=== PATIENT | female | born 1980 | race Caucasian/White ===

== ENCOUNTER 2017-04-04 11:00 | Outpatient (RCR) | payer BC | END 2017-04-05 | LOC: M PT 11:00 | PROVIDERS: ATTEND Physician Assistant | DX: Z51.89 Encounter for other specified aftercare (principal); M75.42 Impingement syndrome of left shoulder ==

== ENCOUNTER 2017-04-18 08:45 | Outpatient (RCR) | payer BC | END 2017-05-05 | LOC: M PT 08:45 | PROVIDERS: ATTEND Physician Assistant | DX: Z51.89 Encounter for other specified aftercare (principal); M25.512 Pain in left shoulder ==

== ENCOUNTER → 2017-07-06 | Outpatient (RCR) | payer OTHER | END | disposition home or self-care (01) | LOC: M PT 06-12 07:42 | PROVIDERS: ATTEND Physician Assistant | DX: Z51.89 Encounter for other specified aftercare (principal); M70.60 Trochanteric bursitis, unspecified hip; M51.36 Other intervertebral disc degeneration, lumbar region ==

== ENCOUNTER 2017-08-03 09:04 | Outpatient (RCR) | payer OTHER | END 2017-08-05 | LOC: M PT 09:04 | PROVIDERS: ATTEND Physician Assistant | DX: Z51.89 Encounter for other specified aftercare (principal); M70.60 Trochanteric bursitis, unspecified hip; M43.10 Spondylolisthesis, site unspecified ==

== ENCOUNTER → 2020-11-16 | Outpatient (CLI) | payer BC, OTHER ==
--- NOTE | 2020-11-16 11:36 | REP ---
INDICATION: IMPINGEMENT SYNDROME OF RIGHT SHOULDER. COMPARISON: Radiographs 06/10/2006. TECHNIQUE: Coronal oblique T1, T2 fat sat, sagittal oblique T2 fat sat, axial T2 fat sat, gradient echo. FINDINGS: Rotator cuff: No evidence of tear. Mild supraspinatus tendinopathy/tendinitis. Acromioclavicular joint: There are moderate hypertrophic degenerative changes of the acromioclavicular joint with subchondral marrow edema on both sides of the joint. Acromion: Type 2 Biceps Tendon: In bicipital groove, with mild surrounding fluid.. Hill Sach's deformity: None. Deltoid muscle: No abnormal signal. Biceps labral complex: Intact. Labrum: No tear. Cartilage: No defects. There is mild chondromalacia at the glenohumeral joint. Bone marrow: There is minimal marrow edema and cystic change in the superolateral humeral head. Joint fluid: No effusion. IMPRESSION: Mild supraspinatus tendinopathy/tendinitis. No rotator cuff or labral tear identified. Moderate hypertrophic degenerative changes acromioclavicular joint with subchondral marrow edema. Mild chondromalacia glenohumeral joint. <Electronically signed by Antony Crooks > 11/16/20 [id number]
== END ==
LOC: M RAD 06:32
PROVIDERS: ATTEND Orthopaedic Surgery Sports Medicine
DX: M75.41 Impingement syndrome of right shoulder (principal); M75.21 Bicipital tendinitis, right shoulder

== ENCOUNTER 2020-12-01 07:37 | Outpatient (RCR) | payer BC | END 2020-12-06 | LOC: M PT 07:37 | PROVIDERS: ATTEND Orthopaedic Surgery Sports Medicine | DX: M75.41 Impingement syndrome of right shoulder (principal) ==

== ENCOUNTER 2020-12-29 08:23 | Outpatient (RCR) | payer BC ==
[2021-01-06] MEDS ORDERED: FLON1SPR (13:57)
[2021-01-06] MEDS ORDERED: CVS1CAP2 PO (13:57)
[2021-01-06] MEDS ORDERED: VITMTA PO (13:57)
[2021-01-06] MEDS ORDERED: ALLE12TA31 PO (13:57)
[2021-01-06] MEDS ORDERED: VITA250T4 PO (13:57)
[2021-01-06] MEDS ORDERED: IBUP200C28 PO (13:57)
== END 2021-01-03 ==
LOC: M PT 08:23
PROVIDERS: ATTEND Orthopaedic Surgery Sports Medicine
DX: M75.41 Impingement syndrome of right shoulder (principal)

== ENCOUNTER → 2021-01-12 | Outpatient (CLI) | payer BC ==
[~2021-01-12] MED LIST: ALLE12TA31 PO; CVS1CAP2 PO; FLON1SPR; IBUP200C28 PO; VITA250T4 PO; VITMTA PO
== END ==
LOC: M LABSMTC 08:00
PROVIDERS: ATTEND Internal Medicine Infectious Disease
DX: Z01.812 Encounter for preprocedural laboratory examination (principal)

== ENCOUNTER 2021-01-13 08:18 | Day surgery (SDC) | payer BC ==
[~2021-01-13] VITALS: Ht 165.1 cm; Wt 93.0 kg
[~2021-01-13 08:18] MED LIST changes: +LR 1,000 ML IV ONE; +MIDAZOLAM INJ 2MG/2ML VIAL (J2250 PER 1MG) IV PRN; +ceFAZolin SOD 2 GM in IV 1 EA IV ONE; +fentaNYL 100 MCG/2 ML INJECTION (J3010) IV PRN
[2021-01-13] MEDS ORDERED: MIDAZOLAM INJ 2MG/2ML VIAL (J2250 PER 1MG) As Ordered ONE (09:21)
[2021-01-13] MEDS ORDERED: LIDOCAINE 2% 100MG/5ML SDV (FOR ANES.) As Ordered ONE (09:22)
[2021-01-13] MEDS ORDERED: PHENYLephrine 500MCG 5ML (100MCG/ML) SYRINGE As Ordered ONE (09:22)
[2021-01-13] MEDS ORDERED: ePHEDrine SULFATE 25 MG/5 ML(5MG/ML) SYRINGE As Ordered ONE (09:22)
[2021-01-13] MEDS ORDERED: propofoL 200 MG/20 ML VIAL As Ordered ONE (09:22)
[2021-01-13] MEDS ORDERED: ROCURONIUM BROMIDE 50 MG/5 ML VIAL As Ordered ONE (09:22)
[2021-01-13] MEDS ORDERED: dexameTHASONE 4 MG/ML 1ML VIAL (J1100 PER 1MG) As Ordered ONE (09:22)
[2021-01-13] MEDS ORDERED: fentaNYL 100 MCG/2 ML INJECTION (J3010) As Ordered ONE ×2 (09:22→12:41)
[2021-01-13] MEDS ORDERED: SUGAMMADEX SODIUM 500 MG/5 ML VIAL (BRIDION) As Ordered ONE (09:22)
[2021-01-13] MEDS ORDERED: ONDANSETRON 4MG/2ML VIAL As Ordered ONE ×2 (09:22→13:38)
[2021-01-13] MEDS ORDERED: PHENYLEPHRINE 10MG/ML 1ML VIAL (J2370 PER 1) As Ordered ONE (09:43)
[2021-01-13] MEDS ORDERED: BUPIVACAINE HCL 0.5% 30 ML VIAL XX ONE (10:30)
[2021-01-13] MEDS ORDERED: dexameTHASONE 10MG/1ML VIAL PRES.FREE (J1100 PER 1MG) XX ONE (10:30)
[2021-01-13] MEDS ORDERED: EPINEPHrine INJ 1 MG/ML 1ML AMP XX ONE (10:30)
[2021-01-13] MEDS ORDERED: EPINEPHrine 1MG/ML INJ 30ML MD-VIAL As Ordered ONE (11:47)
[2021-01-13] MEDS ORDERED: ACETAMINOPHEN 1000MG 100ML IV BTL (OFIRMEV) (J0131 PER 10MG) As Ordered ONE (12:28)
[2021-01-13] MEDS ORDERED: LABETALOL 100MG/20ML VIAL As Ordered ONE (12:44)
[2021-01-13] MEDS ORDERED: ESMOLOL INJ 100MG/10ML VIAL As Ordered ONE (12:44)
--- NOTE | 2021-01-13 13:32 | ROOPDOC ---
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 PROCEDURE: Right shoulder arthroscopy subacromial decompression and distal clavicle excision. SURGEON: Teddy Salas MD [employer] SUPERVISOR: ANESTHESIA: Gen. anesthesia and preoperative block by Dr MCKEON. ESTIMATED BLOOD LOSS: Approximately 50 mL. COMPLICATIONS: None. REMARKS: She did have moderate deltoid swelling despite the case being very short in duration. PROCEDURE NOTE: This 40-year-old female failed conservative management with right shoulder impingement syndrome and symptoms as well as pain from her distal clavicle joint. She wished to go ahead with operative management. I re-explained the pros and cons and risks and benefits of surgery. I marked the right upper extremity and the patient had a preoperative block. We proceeded to surgery DESCRIPTION OF PROCEDURE: Patient was brought to the operating theater and administered a general anesthetic. There are placed supine on the operating room table. The patient was transferred . right lateral decubitus with the aid of the beanbag positioner. All bony prominences were padded. Pillows placed between the legs. Axillary roll was placed. 2 g of IV Ancef was administered prior to the start of the case. Limb was prepped and draped with the usual sterile prep solution chlorhexidine allowing over 3 minutes prep solution drying time prior to draping. The patient's limb was placed into a sterile abduction set up with 10 pounds of traction. Preoperative timeout was performed to confirm the site the patient and surgery. I began by making a standard posterior arthroscopy portal and inserting the arthroscope into the intra-articular portion of the right shoulder. I performed a thorough diagnostic arthroscopy. Anterior portal was created just distal to the acromioclavicular joint through the rotator interval. There is a moderate amount of synovitis at the rotator interval as well as posterior to the posterior labrum. This was gently debrided using electrocautery .Cartilage on the glenoid and humeral head was normal. Subscapularis tendon was normal as was the undersurface of the supraspinatus and infraspinatus tendons. Biceps tendon appeared normal and stable synovitis and no tears. Labrum appears normal although there was some slight fraying of the anterior labrum and this is gently debrided. Arthroscope was inserted into the subacromial space. There is a moderate amount minimally inflammatory-appearing bursitis. I removed and performed a complete bursectomy using shaving instrument that I brought in through a lateral portal localized with a spinal needle. Using oval bur to perform subacromial decompression anterolateral acromion for a full bur width. There is slight downsloping the anterolateral acromion. I shaved this down to the flat margins. I then identified the distal end of the clavicle at the acromioclavicular joint. I performed a complete distal clavicle excision for a width of 1.1 cm. I inserted the arthroscope directly anterior into the acromioclavicular joint to ensure complete and thorough and distal clavicle excision. Superior aspect of the entire rotator cuff tendon was thoroughly probed and no tears found on the undersurface or on the superior bursal surface. Arthroscopic pictures were taken throughout the case and saved into the system. There is a moderate amount of deltoid swelling despite the case taking less than 30 minutes. Arthroscope was withdrawn wounds cleaned with wet and dry dressing. Steri-Strips were applied. Adaptic, 4 x 8 gauze, ABDs dressing, cloth tape was used. Patient's upper extremity was placed into a sling. Patient was woken up from their general anesthetic transferred off the operating room table and taken to postanesthetic care unit in stable condition. All sponge, needle, sponge counts are correct. No complications. Estimated blood loss 50 mL. Plan the patient is be discharged per day surgery criteria. We will start a pendulum exercises 4 times a day as well as coming out of the sling to perform elbow and wrist exercises. Follow-up in the office in 2 weeks' time. Prescription has been sent to the pharmacy of choice electronically. TEDDY SALAS MD Jan 13, 2021 13:32
[2021-01-13] MEDS ORDERED: LR 1,000 ML IV SCH (13:40)
[2021-01-13] MEDS ORDERED: oxyCODONE 5MG TAB PO PRN (13:40)
[2021-01-13] MEDS ORDERED: fentaNYL 100 MCG/2 ML INJECTION (J3010) IV PRN (13:40)
[2021-01-13] MEDS ORDERED: ONDANSETRON 4MG/2ML VIAL IV PRN (13:40)
[2021-01-13] MEDS ORDERED: METOCLOPRAMIDE INJ 10MG/2ML VIAL (J2765 PER 1) IV PRN (14:00)
[2021-01-13] MEDS ORDERED: PROMETHAZINE INJ 25 MG/ML VIAL (J2550) IV PRN (14:30)
[2021-01-13 16:01] VITALS: BP 159/81
== END 2021-01-13 16:21 | disposition home or self-care (01) ==
LOC: M SDC 08:18
PROVIDERS: ATTEND Orthopaedic Surgery Sports Medicine
DX: M75.41 Impingement syndrome of right shoulder (principal); M19.011 Primary osteoarthritis, right shoulder; Z79.899 Other long term (current) drug therapy; K21.9 Gastro-esophageal reflux disease without esophagitis; F17.218 Nicotine dependence, cigarettes, with other nicotine-induced disorders
CPT/HCPCS: 29824; 29826; 64415; 81025; J0131; J0171; J0690; J1100; J2250; J2370; J2405; J2765; J3010; U0002

== ENCOUNTER → 2021-02-03 | Outpatient (RCR) | payer BC ==
[~2021-02-03] MED LIST changes: -LR 1,000 ML IV ONE; -MIDAZOLAM INJ 2MG/2ML VIAL (J2250 PER 1MG) IV PRN; -ceFAZolin SOD 2 GM in IV 1 EA IV ONE; -fentaNYL 100 MCG/2 ML INJECTION (J3010) IV PRN
== END ==
LOC: M PT 07:28
PROVIDERS: ATTEND Orthopaedic Surgery Sports Medicine
DX: Z48.89 Encounter for other specified surgical aftercare (principal); Z98.890 Other specified postprocedural states; M25.511 Pain in right shoulder

== ENCOUNTER 2021-03-03 07:45 | Outpatient (RCR) | payer BC | END 2021-03-05 | LOC: M PT 07:45 | PROVIDERS: ATTEND Orthopaedic Surgery Sports Medicine | DX: Z48.89 Encounter for other specified surgical aftercare (principal); Z98.890 Other specified postprocedural states; M25.511 Pain in right shoulder ==

== ENCOUNTER 2021-03-31 07:45 | Outpatient (RCR) | payer BC | END 2021-04-05 | LOC: M PT 07:45 | PROVIDERS: ATTEND Orthopaedic Surgery Sports Medicine | DX: Z48.89 Encounter for other specified surgical aftercare (principal); Z98.890 Other specified postprocedural states ==

== ENCOUNTER 2021-04-07 07:14 | Outpatient (RCR) | payer BC | END 2021-05-05 | LOC: M PT 07:14 | PROVIDERS: ATTEND Orthopaedic Surgery Sports Medicine | DX: Z48.89 Encounter for other specified surgical aftercare (principal); Z98.890 Other specified postprocedural states; M25.511 Pain in right shoulder ==

== ENCOUNTER → 2023-12-27 | Outpatient (CLI) | payer BC | LOC: M SOG 07:53 | PROVIDERS: ATTEND Physician Assistant | DX: M25.511 Pain in right shoulder (principal) ==

== ENCOUNTER → 2024-01-04 | Outpatient (CLI) | payer BC | LOC: M SOG 08:56 | PROVIDERS: ATTEND Physician Assistant | DX: M54.2 Cervicalgia (principal); M47.812 Spondylosis without myelopathy or radiculopathy, cervical region ==

== ENCOUNTER 2024-01-31 09:00 | Outpatient (RCR) | payer BC | END 2024-02-04 | LOC: M PT 09:00 | PROVIDERS: ATTEND Physician Assistant | DX: M54.2 Cervicalgia (principal) | CPT/HCPCS: 97010; 97110; 97140; 97161; G0283 ==

== ENCOUNTER → 2024-02-14 | Outpatient (REF) | payer BC | LOC: M LAB REF 16:09 | PROVIDERS: ATTEND Surgery | DX: L72.3 Sebaceous cyst (principal) ==

== ENCOUNTER 2024-02-29 08:15 | Outpatient (RCR) | payer BC | END 2024-03-05 | LOC: M PT 08:15 | PROVIDERS: ATTEND Physician Assistant | DX: M54.2 Cervicalgia (principal); M62.838 Other muscle spasm; M75.41 Impingement syndrome of right shoulder | CPT/HCPCS: 97110; 97140; G0283 ==

== ENCOUNTER → 2024-03-05 | Outpatient (CLI) | payer BC ==
[~2024-03-05] MED LIST changes: +VITA250T27 PO; -VITA250T4 PO
== END ==
LOC: M PLAIMG 06:36
PROVIDERS: ATTEND Physician Assistant
DX: M75.41 Impingement syndrome of right shoulder (principal); M54.2 Cervicalgia

== ENCOUNTER 2024-03-21 07:45 | Outpatient (RCR) | payer BC | END 2024-04-05 | LOC: M PT 07:45 | PROVIDERS: ATTEND Physician Assistant | DX: M54.2 Cervicalgia (principal); M62.838 Other muscle spasm; M75.41 Impingement syndrome of right shoulder ==

== ENCOUNTER → 2024-04-27 | Outpatient (CLI) | payer BC ==
[2024-04-27 10:36] LABS: HEMATOCRIT 45.3 % (36.0-47.0); HEMOGLOBIN 15.5 g/dl (12.0-15.5); MEAN CORPUSCULAR HEMOGLOBIN 30.4 pg (27.0-33.0); MEAN CORPUSCULAR HGB CONC 34.2 g/dl (32.0-36.5); MEAN CORPUSCULAR VOLUME 88.8 fl (80.0-96.0); PLATELET COUNT, AUTOMATED 249 10^3/uL (150-450); WHITE BLOOD COUNT 11.2 10^3/uL (4.0-10.0)
[2024-04-27 10:58] LABS: ALBUMIN 3.5 G/DL (3.2-5.2); ALKALINE PHOSPHATASE 77 U/L (46-116); ALT/SGPT 66 U/L (7.0-40); AST/SGOT 20 U/L (<34); BILIRUBIN,TOTAL 0.4 MG/DL (0.3-1.2); BLOOD UREA NITROGEN 14 MG/DL (9-23); CARBON DIOXIDE LEVEL 30 MMOL/L (20-31); CHLORIDE LEVEL 100 MMOL/L (98-107); CREATININE FOR GFR 0.47 MG/DL (0.55-1.30); GLOMERULAR FILTRATION RATE > 60.0 (>58); GLUCOSE, FASTING 265 MG/DL (60-100); SODIUM LEVEL 137 MMOL/L (136-145); TOTAL 25(OH) VITAMIN D 13.2 NG/ML (20.0-100.0); TOTAL PROTEIN 6.7 G/DL (5.7-8.2)
[2024-04-27 11:27] LABS: HEMOGLOBIN A1c 10.9 % (4.0-6.0)
[2024-04-27 11:41] LABS: BASOPHILS 1 % (0-1); EOSINOPHILS 1 % (0-3); LYMPHOCYTES 50 % (16-44); MONOCYTES 2 % (0-5); NEUTROPHILS 46 % (28-66); PLATELET CLUMPS SMALL AMT; PLATELET ESTIMATE NORMAL (NORMAL); POLYCHROMASIA 1+
== END ==
LOC: M LAB 09:04
PROVIDERS: ATTEND Orthopaedic Surgery
DX: M50.122 Cervical disc disorder at C5-C6 level with radiculopathy (principal)

== ENCOUNTER → 2024-07-09 | Outpatient (REF) | payer BC ==
[2024-07-09 18:17] LABS: HEMATOCRIT 45.4 % (36.0-47.0); HEMOGLOBIN 15.6 g/dl (12.0-15.5); MEAN CORPUSCULAR HEMOGLOBIN 31.1 pg (27.0-33.0); MEAN CORPUSCULAR HGB CONC 34.4 g/dl (32.0-36.5); MEAN CORPUSCULAR VOLUME 90.4 fl (80.0-96.0); PLATELET COUNT, AUTOMATED 307 10^3/uL (150-450); RED BLOOD COUNT 5.02 10^6/uL (4.00-5.40)
[2024-07-09 18:27] LABS: ALBUMIN 4.1 G/DL (3.2-5.2); ALKALINE PHOSPHATASE 65 U/L (46-116); ALT/SGPT 48 U/L (7.0-40); AST/SGOT 22 U/L (<34); BILIRUBIN,TOTAL 0.4 MG/DL (0.3-1.2); BLOOD UREA NITROGEN 20 MG/DL (9-23); CALCIUM LEVEL 9.6 MG/DL (8.5-10.1); CARBON DIOXIDE LEVEL 28 MMOL/L (20-31); CHLORIDE LEVEL 102 MMOL/L (98-107); CHOLESTEROL LEVEL 146 MG/DL (<200); CHOLESTEROL RISK RATIO 4.35 (<5); CREATININE FOR GFR 0.61 MG/DL (0.55-1.30); GLOMERULAR FILTRATION RATE > 60.0 (>58); GLUCOSE, FASTING 181 MG/DL (60-100); HDL CHOLESTEROL 33.5 MG/DL (>40); LDL CHOLESTEROL 88.5 MG/DL (<100); NON-HDL-C 112.5 MG/DL; POTASSIUM SERUM 4.6 MMOL/L (3.5-5.1); SODIUM LEVEL 135 MMOL/L (136-145); THYROID STIMULATING HORMONE 1.336 uIU/ML (0.55-4.78); TOTAL PROTEIN 7.6 G/DL (5.7-8.2); TRIGLYCERIDES LEVEL 120 MG/DL (<150)
[2024-07-09 19:15] LABS: HEMOGLOBIN A1c 8.1 % (4.0-6.0)
[2024-07-09 19:30] LABS: CREATININE, URINE 136.2 MG/DL; MAU/CREAT RATIO 22.7 MCG/MG (0.0-30.0)
== END ==
LOC: M LAB REF 16:16
PROVIDERS: ATTEND Nurse Practitioner Family
DX: E11.8 Type 2 diabetes mellitus with unspecified complications (principal)

== ENCOUNTER → 2024-12-18 | Outpatient (CLI) | payer BC | LOC: M WHC 07:27 | PROVIDERS: ATTEND Nurse Practitioner Family | DX: R92.2 Inconclusive mammogram (principal) ==

== ENCOUNTER → 2025-01-08 | Outpatient (CLI) | payer BC | LOC: M WHC 08:30 | PROVIDERS: ATTEND Nurse Practitioner Family | DX: R92.8 Other abnormal and inconclusive findings on diagnostic imaging of breast (principal) | CPT/HCPCS: 77065; G0279 ==

== ENCOUNTER → 2025-02-25 | Outpatient (REF) | payer BC ==
[2025-02-25 12:40] LABS: APPEARANCE, URINE HAZY (CLEAR); BACTERIA, URINE AUTO NEGATIVE (NEGATIVE); BILIRUBIN, URINE AUTO NEGATIVE (NEGATIVE); BLOOD, URINE BLOOD NEGATIVE (NEGATIVE); COLOR, URINE YELLOW (YELLOW); GLUCOSE, URINE (UA) AUTO NEGATIVE (NEGATIVE); KETONE, URINE AUTO NEGATIVE (NEGATIVE); LEUKOCYTE ESTERASE, URINE AUTO TRACE (NEGATIVE); MUCUS, URINE SMALL (NEGATIVE); NITRITE, URINE AUTO NEGATIVE (NEGATIVE); PROTEIN, URINE AUTO NEGATIVE (NEGATIVE); RBC, URINE AUTO 2 /HPF (0-3); SPECIFIC GRAVITY URINE AUTO 1.023 (1.002-1.035); SQUAMOUS EPITHELIAL CELL UR AU 6 /HPF (0-6); UROBILINOGEN, URINE AUTO 0.2 mg/dL (0.0-2.0); WBC, URINE AUTO 3 /HPF (0-3)
[2025-02-25 13:52] LABS: BLOOD UREA NITROGEN 29 MG/DL (9-23); CALCIUM LEVEL 10.1 MG/DL (8.5-10.1); CARBON DIOXIDE LEVEL 29 MMOL/L (20-31); CHLORIDE LEVEL 100 MMOL/L (98-107); CREATININE FOR GFR 0.63 MG/DL (0.55-1.30); GLOMERULAR FILTRATION RATE > 90.0 (>58); GLUCOSE, FASTING 133 MG/DL (60-100); HCG, SERUM QUALITATIVE NEGATIVE (NEGATIVE); POTASSIUM SERUM 4.8 MMOL/L (3.5-5.1); SODIUM LEVEL 138 MMOL/L (136-145)
[2025-02-25 13:54] LABS: BASO # 0.1 10^3/uL (0.0-0.2); BASO % 0.6 % (0.0-1.0); EOS # 0.1 10^3/uL (0.0-0.5); EOS % 1.2 % (0.0-3.0); HEMOGLOBIN 15.2 g/dl (12.0-15.5); LYMPH # 2.1 10^3/uL (1.5-5.0); MEAN CORPUSCULAR HEMOGLOBIN 30.6 pg (27.0-33.0); MEAN CORPUSCULAR VOLUME 92.6 fl (80.0-96.0); MONO # 0.6 10^3/uL (0.0-0.8); MONO % 7.2 % (2.0-8.0); NEUTROPHILS # 5.3 10^3/uL (1.5-8.5); NEUTROPHILS % 64.9 % (36.0-66.0); PLATELET COUNT, AUTOMATED 239 10^3/uL (150-450); RED BLOOD COUNT 4.97 10^6/uL (4.00-5.40); WHITE BLOOD COUNT 8.2 10^3/uL (4.0-10.0)
[2025-02-25 14:15] LABS: HEMOGLOBIN A1c 5.8 % (4.0-6.0)
== END ==
LOC: M LAB REF 12:09
PROVIDERS: ATTEND Nurse Practitioner Family
DX: Z01.818 Encounter for other preprocedural examination (principal); E11.39 Type 2 diabetes mellitus with other diabetic ophthalmic complication

== ENCOUNTER → 2025-06-05 | Outpatient (RCR) | payer BC | LOC: M PT 05-06 07:36 | PROVIDERS: ATTEND Nurse Practitioner Adult Health | DX: M54.2 Cervicalgia (principal); Z47.89 Encounter for other orthopedic aftercare ==

== ENCOUNTER → 2025-06-18 | Outpatient (REF) | payer BC ==
[2025-06-20 15:17] LABS: HPV APTIMA Not Detected (Not Detected)
== END ==
LOC: M SFHCWAGY 18:03
PROVIDERS: ATTEND Nurse Practitioner Family
DX: Z12.39 Encounter for other screening for malignant neoplasm of breast (principal); Z12.4 Encounter for screening for malignant neoplasm of cervix
CPT/HCPCS: 87624; G0123

== ENCOUNTER → 2025-08-12 | Outpatient (REF) | payer BC ==
[2025-08-12 14:18] LABS: CREATININE, URINE 202.3 MG/DL; MALB URINE SIEMENS 33.0 MG/L; MAU/CREAT RATIO 16.3 MCG/MG (0.0-30.0)
== END ==
LOC: M LAB REF 12:25
PROVIDERS: ATTEND Nurse Practitioner Family
DX: E11.9 Type 2 diabetes mellitus without complications (principal)

== ENCOUNTER → 2025-09-09 | Outpatient (CLI) | payer BC | LOC: M WHC 07:18 | PROVIDERS: ATTEND Nurse Practitioner Family | DX: R92.8 Other abnormal and inconclusive findings on diagnostic imaging of breast (principal) ==